=== PATIENT | male | born 1990 | race Caucasian/White ===

== ENCOUNTER 2018-10-04 08:55 | Emergency (ER) | payer OTHER ==
[~2018-10-04] VITALS: Ht 180.3 cm; Wt 99.8 kg
[2018-10-04 08:57] VITALS: BP 142/97
== END 2018-10-04 11:05 | disposition home or self-care (01) ==
LOC: ER 08:55
DX: M79.641 Pain in right hand (principal); Z88.1 Allergy status to other antibiotic agents